=== PATIENT | female | born 1975 | race African-American/Black ===

== ENCOUNTER 2025-04-19 12:25 | Outpatient (CLI) | payer OTHER | END 2025-04-19 12:26 | disposition home or self-care (01) | LOC: SCSULT 12:25 | PROVIDERS: ATTEND Orthopaedic Surgery | DX: I82.409 Acute embolism and thrombosis of unspecified deep veins of unspecified lower extremity (principal); R22.41 Localized swelling, mass and lump, right lower limb ==